=== PATIENT | male | born 1990 | race African-American/Black ===

== ENCOUNTER 2019-01-16 18:27 | Emergency (ER) | payer MEDICAID, OTHER ==
[~2019-01-16] VITALS: Ht 172.7 cm; Wt 70.0 kg
[2019-01-16 18:38] VITALS: BP 136/78
== END 2019-01-17 03:12 | disposition left against medical advice (07) ==
LOC: ER 18:27
DX: Z53.21 Procedure and treatment not carried out due to patient leaving prior to being seen by health care provider (principal)

== ENCOUNTER 2024-01-07 05:38 | Emergency (ER) | payer MEDICAID ==
[~2024-01-07] VITALS: Ht 175.3 cm; Wt 79.3 kg
[2024-01-07 05:55] VITALS: BP 119/72; PULSE 99; RESP 18; TEMP 98.3; O2SAT 100
[2024-01-07 07:40] LABS: BASOPHILS % 0.9 % (0.0-2.0); EOSINOPHILS % 2.7 % (0.0-5.0); HEMATOCRIT. 46.3 % (42.0-52.0); HEMOGLOBIN. 15.7 g/dL (14.0-18.0); LYMPHOCYTES % 44.5 % (20.0-50.0); MEAN CORPUSCULAR HGB CONC 33.9 g/dL (31.0-37.0); MEAN CORPUSCULAR VOLUME 88.5 fL (80.0-94.0); MEAN PLATELET VOLUME 7.4 fl (7.4-10.4); MONOCYTES % 9.1 % (2.0-8.0); NEUTROPHILS % 42.8 % (40.0-76.0); PLATELET 359 x1000/uL (130-400); RED BLOOD CELL COUNT 5.23 mill/uL (4.7-6.1); RED CELL DISTRIBUTION WIDTH 13.2 % (11.6-14.6); WHITE BLOOD COUNT 6.1 x1000/uL (4.5-11.0)
[2024-01-07 07:47] LABS: CHLORIDE 105 mEq/L (98-107); POTASSIUM 4.2 mEq/L (3.5-5.1); SODIUM 140 mEq/L (136-145)
[2024-01-07 07:48] LABS: CALCIUM 9.4 mg/dL (8.7-10.4); CARBON DIOXIDE 29 mEq/L (21-32)
[2024-01-07 07:53] LABS: GLUCOSE 69 mg/dL (70-105); UREA NITROGEN BLOOD 8 mg/dL (9-23)
[2024-01-07 10:04] LABS: BG BASE EXCESS -1.4 mmol/L (-2.0-2.0); BG CARBOXYHEMOGLOBIN 0.3 % (0.5-1.5); BG DEOXYHEMOGLOBIN 2.4 % (0.0-5.0); BG FRACTION INSPIRED OXYGEN 21; BG HCO3 ACT 23.2 mmol/L (22.0-26.0); BG METHEMOGLOBIN 0.1 % (0.0-1.5); BG OXYGEN SATURATION 97.6 % (92.0-98.5); BG OXYHEMOGLOBIN 97.2 % (94.0-97.0); BG PCO2 38.6 mmHg (35.0-45.0); BG PH 7.396 (7.350-7.450); BG PO2 101.1 mmHg (75.0-100.0); BG SAMPLE SITE RIGHT BRACHIAL; BG TOTAL HEMOGLOBIN 16.4 g/dL (12.0-18.0); BG VENT MODE ROOM AIR
== END 2024-01-07 11:14 | disposition home or self-care (01) ==
LOC: ER 05:38
DX: B34.9 Viral infection, unspecified (principal); Z20.822 Contact with and (suspected) exposure to COVID-19
CPT/HCPCS: 36415; 36600; 71045; 80048; 82375; 82805; 85025; 87426; 99283; 99284

== ENCOUNTER 2024-09-03 16:27 | Emergency (ER) | payer MEDICAID ==
[~2024-09-03] VITALS: Ht 172.7 cm; Wt 77.2 kg
[2024-09-03 16:28] VITALS: O2SAT 96
[2024-09-03 16:36] VITALS: BP 118/86; PULSE 93; RESP 18; TEMP 36.7; O2SAT 100
== END 2024-09-03 17:00 | disposition left against medical advice (07) ==
LOC: ER 16:27
DX: H92.01 Otalgia, right ear (principal); Z53.21 Procedure and treatment not carried out due to patient leaving prior to being seen by health care provider
CPT/HCPCS: 99285